=== PATIENT | female | born 1950 | race Caucasian/White ===

== ENCOUNTER → 2018-03-29 | Outpatient (CLI) | payer MEDICARE, BC ==
[~2018-03-29] MED LIST: CALC-455 PO; DIPH-419 PO; MULT-658 PO; OMEP-110 PO
[2018-03-29 14:24] LABS: MICROSCOPIC AUTO
== END ==
LOC: STAR 13:22
PROVIDERS: ATTEND Specialist
DX: Z01.818 Encounter for other preprocedural examination (principal); R94.31 Abnormal electrocardiogram [ECG] [EKG]
CPT/HCPCS: 81001; 93005

== ENCOUNTER 2018-04-05 05:51 | Day surgery (SDC) | payer MEDICARE, BC ==
[~2018-04-05] VITALS: Ht 162.6 cm; Wt 50.9 kg
[2018-04-05 06:19] VITALS: BP 119/75
[2018-04-05] MEDS ORDERED: LACTATED RINGERS 1,000 ML IV SCH (06:24)
[2018-04-05] MEDS ORDERED: OxyconTIN ER 10 MG TAB.ER PO ONE (06:30)
[2018-04-05] MEDS ORDERED: ACETAMINOPHEN 500 MG TABLET PO ONE (06:30)
[2018-04-05] MEDS ORDERED: GABAPENTIN 300 MG CAPSULE PO ONE (06:30)
[2018-04-05] MEDS ORDERED: ONDANSETRON ODT 8 MG PO ONE (06:30)
[2018-04-05] MEDS ORDERED: LIDOCAINE-MPF 1%, 2ML INFIL ONE (06:30)
[2018-04-05] MEDS ORDERED: FENTANYL PF 250 MCG/5ML ONE (07:28)
[2018-04-05] MEDS ORDERED: MIDAZOLAM 1 MG/ML, 2ML ONE (07:28)
[2018-04-05] MEDS ORDERED: PROPOFOL 10 MG/ML, 20ML ONE (07:29)
[2018-04-05] MEDS ORDERED: NEOSTIGMINE 1 MG/ML, 10ML ONE (07:30)
[2018-04-05] MEDS ORDERED: GLYCOPYRROLATE 0.4 MG/2 ML, 2ML ONE (07:30)
[2018-04-05] MEDS ORDERED: ROCURONIUM 10MG/ML,5ML ONE (07:30)
[2018-04-05] MEDS ORDERED: WATER-INJECTION,STERILE 10 ML IV ONE (07:31)
[2018-04-05] MEDS ORDERED: CEFAZOLIN 1,000 MG ONE ×2 (07:31)
[2018-04-05] MEDS ORDERED: DEXAMETHASONE 4 MG/ML, 1ML ONE ×2 (07:32)
[2018-04-05] MEDS ORDERED: BACITRACIN 50,000 UNIT ONE (08:05)
[2018-04-05] MEDS ORDERED: PROMETHAZINE 12.5 MG SUPP PR PRN (08:30)
[2018-04-05] MEDS ORDERED: PROMETHAZINE 25 MG SUPP PR PRN (08:30)
[2018-04-05] MEDS ORDERED: PROMETHAZINE 25 MG/ML, 1ML IV PRN (08:30)
[2018-04-05] MEDS ORDERED: OXYcodone 5 MG/5 ML ORAL.SOL UDC PO PRN (08:30)
[2018-04-05] MEDS ORDERED: MORPHINE SULFATE 4 MG/ML, 1ML IVPush PRN (08:30)
[2018-04-05] MEDS ORDERED: LABETALOL 5MG/ML, 20ML IV PRN (08:30)
[2018-04-05] MEDS ORDERED: hydrALAzine 20 MG/ML, 1ML IV PRN (08:30)
[2018-04-05] MEDS ORDERED: ONDANSETRON ODT 8 MG PO PRN (08:30)
[2018-04-05] MEDS ORDERED: FENTANYL PF 100 MCG/2ML IV PRN (08:30)
[2018-04-05] MEDS ORDERED: MEPERIDINE/PF 25MG/0.5ML IVPush PRN (08:30)
[2018-04-05] MEDS ORDERED: HYDROmorphone 1 MG/ML, 1ML ONE (10:01)
[2018-04-05] MEDS ORDERED: OXYcodone 5 MG/5 ML ORAL.SOL UDC ONE (10:01)
[2018-04-05] MEDS: HYDROmorphone 1 MG/ML, 1ML IV PRN ×3 (10:06→10:28)
== END 2018-04-05 13:55 ==
LOC: OUT 05:51
PROVIDERS: ATTEND Specialist
DX: T85.49XA Other mechanical complication of breast prosthesis and implant, initial encounter (principal); Y83.8 Other surgical procedures as the cause of abnormal reaction of the patient, or of later complication, without mention of misadventure at the time of the procedure; Y92.89 Other specified places as the place of occurrence of the external cause; C50.911 Malignant neoplasm of unspecified site of right female breast; C50.912 Malignant neoplasm of unspecified site of left female breast; K21.9 Gastro-esophageal reflux disease without esophagitis
CPT/HCPCS: 19340; 19371; C1729; C1789; J0690; J1100; J1170; J2250; J2704; J2710; J3010; J3490; J7120; Q0162

== ENCOUNTER → 2018-09-04 | Outpatient (CLI) | payer MEDICARE, BC | END | disposition home or self-care (01) | LOC: CFH 13:44 | PROVIDERS: ATTEND Nurse Practitioner Family | DX: I08.3 Combined rheumatic disorders of mitral, aortic and tricuspid valves (principal); E78.5 Hyperlipidemia, unspecified; C50.919 Malignant neoplasm of unspecified site of unspecified female breast | CPT/HCPCS: 70544; 93306 ==